=== PATIENT | female | born 1955 | race Caucasian/White ===

== ENCOUNTER 2018-01-22 07:11 | Day surgery (SDC) | payer BC ==
[~2018-01-22] VITALS: Ht 180.3 cm; Wt 121.2 kg
[~2018-01-22 07:11] MED LIST: ASPIRIN E.C. 8181 MG PO; CELEXA 20MG20 MG/TAB PO; CO Q-1010 M1 PO; CYMBALTA 60MG60 MG PO; DOMPERIDONE10 MG/CAP PO; ESTRACE 1MG1 MG/TAB PO; GLUCOPHAGE500 MG/TAB PO; IRON325 MG PO; LIPITOR20 MG PO; MIDRIN 325 MG-11 CAP PO; MOBIC15 MG PO; MULTIPLE VITAMI1 TAB PO; NAPROSYN500 MG PO; NEURONTIN100 MG/CAP PO; NORCO 325 MG-51 TAB PO; PRINIVIL5 MG PO; PRINZIDE 12.5 M1 TAB PO; SINGULAIR 110 MG/TAB PO; SPORANOX100 MG PO; VALIUM 2MG T2 MG/TAB PO; ZANTAC 150MG T150 MG PO; [UNRECOGNIZED DRUG - CODE] PO
[2018-01-22] MEDS ORDERED: VITAMIN C500 MG PO (07:47)
[2018-01-22] MEDS ORDERED: CALCIUM CARBON650 M2 PO (07:48)
[2018-01-22] MEDS ORDERED: IRON PO (07:50)
[2018-01-22] MEDS ORDERED: BREO IH (07:51)
[2018-01-22] MEDS ORDERED: PRILOSEC10 MG PO (07:53)
[2018-01-22 07:56] VITALS: BP 129/92; PULSE 71; TEMP 98.3
[2018-01-22 08:45] VITALS: BP 114/78; PULSE 67; TEMP 97.8
[2018-01-22 09:00] VITALS: BP 112/76; PULSE 68
[2018-01-22 09:15] VITALS: BP 120/67; PULSE 65
[2018-01-22 09:30] VITALS: BP 126/64; PULSE 66
== END 2018-01-22 09:40 | disposition home or self-care (01) ==
LOC: SDCO 07:11
DX: Z12.11 Encounter for screening for malignant neoplasm of colon (principal); K21.0 Gastro-esophageal reflux disease with esophagitis; K31.7 Polyp of stomach and duodenum; K29.30 Chronic superficial gastritis without bleeding; J45.909 Unspecified asthma, uncomplicated; M19.90 Unspecified osteoarthritis, unspecified site; E11.9 Type 2 diabetes mellitus without complications; K44.9 Diaphragmatic hernia without obstruction or gangrene; Z90.49 Acquired absence of other specified parts of digestive tract; Z90.710 Acquired absence of both cervix and uterus
CPT/HCPCS: OP; J2250; J2405; J3010

== ENCOUNTER 2021-01-01 20:11 | Observation (INO) | payer MEDICARE ==
[~2021-01-01] VITALS: Ht 154.9 cm; Wt 112.7 kg
[~2021-01-01 20:11] MED LIST changes: +BREO IH; +CALCIUM CARBON650 M2 PO; +IRON PO; +PRILOSEC10 MG PO; +VITAMINC1000TA PO
[2021-01-01 21:03] LABS: COLLECTION METHOD CLEAN CATCH
[2021-01-01 21:13] LABS: BASO # 0.1 (0.0-0.2); BASO % 0.5 % (0.0-2.0); EOS # 0.2 (0.0-0.7); EOS % 1.1 % (0-4.0); GRAN # 13.4 (1.4-6.5); HEMATOCRIT 41.6 % (37.0-47.0); HEMOGLOBIN 13.5 g/dl (12.5-16.0); LYMPH # 1.2 (1.2-3.4); LYMPH % 7.6 % (20.0-51.0); MEAN CELL VOLUME 83 fl (80.0-100.0); MEAN CORPUSCULAR HEMOGLOBIN 27 pg (27.0-31.0); MEAN CORPUSCULAR HGB CONC 33 g/dl (33.0-37.0); MONO # 0.9 (0.1-0.6); MONO % 5.5 % (1.7-9.3); PLATELET COUNT 260 K/mm3 (130-400); RED BLOOD COUNT 4.99 M/mm3 (4.10-5.30)
[2021-01-01 21:16] LABS: MUCOUS Present /lpf; PH 5 (5-8); SQUAMOUS EPITHELIAL 0-2 /hpf; URINE APPEARANCE Hazy; URINE BACTERIA Rare /hpf; URINE BILIRUBIN Negative (NEGATIVE); URINE BLOOD Negative (NEGATIVE); URINE CALCIUM OXALATE CRYSTAL Present /hpf; URINE COLOR Yellow; URINE GLUCOSE Negative (NEGATIVE); URINE KETONE Negative (NEGATIVE); URINE LEUKOCYTE ESTERASE Trace (NEGATIVE); URINE NITRATE Negative (NEGATIVE); URINE PROTEIN(semi-quant) Negative (NEGATIVE); URINE RBC 0-2 /hpf
[2021-01-01 21:26] LABS: ALANINE AMINOTRANSFERASE 21 U/L (4-34); ALBUMIN 4.6 gm/dL (3.5-5.0); ALKALINE PHOSPHATASE 91 U/L (50-136); ANION GAP 7 mmol/L (7-16); AST,SGOT 26 U/L (15-37); BILIRUBIN,TOTAL 0.7 mg/dL (0.0-1.0); BLOOD UREA NITROGEN 23 mg/dL (7-17); CALCIUM 9.8 mg/dL (8.4-10.2); CARBON DIOXIDE 29 mmol/L (22-30); CHLORIDE 103 mmol/L (98-107); GLUCOSE 105 mg/dL (74-106); POTASSIUM 3.5 mmol/L (3.4-5.0); SODIUM 139 mmol/L (137-145); TOTAL PROTEIN 8.5 gm/dL (6.4-8.2)
[2021-01-01 21:36] LABS: LIPASE 165 U/L (23-300)
[2021-01-02 01:49] VITALS: BP 114/61; PULSE 77; TEMP 97.9
--- NOTE | 2021-01-02 03:44 | NUR ---
alert and ox4. Admit from er per w/c. Pt states has been having abdominal pain since july 2020. Has als had some nausea and dry heaving. Pain worsens when with having bowel movemnts. Desribes as abdomen cramping. Pt was suppose to be here this am at [address] Liang. NPO currently. Orders reviewed. Medicated by ER, NO pain upon arrival. Will let know in am that she is admitted for colitis. Antibotics and fluids infusing. POC discused.
--- NOTE | 2021-01-02 06:05 | NUR ---
CONSULTS CALLED TO DR EDDY AND DR STRANGE THIS AM.
--- NOTE | 2021-01-02 07:10 | NUR ---
Pt was up in the restroom, reports that she is having increase in pain and is requesting pain medication
[2021-01-02 07:18] LABS: BASO # 0.1 (0.0-0.2); BASO % 0.4 % (0.0-2.0); EOS # 0.2 (0.0-0.7); EOS % 1.7 % (0-4.0); GRAN # 9.7 (1.4-6.5); GRAN % 76.3 % (42.2-75.2); HEMOGLOBIN 11.6 g/dl (12.5-16.0); LYMPH % 15.7 % (20.0-51.0); MEAN CELL VOLUME 86 fl (80.0-100.0); MEAN CORPUSCULAR HEMOGLOBIN 28 pg (27.0-31.0); MEAN CORPUSCULAR HGB CONC 32 g/dl (33.0-37.0); MEAN PLATELET VOLUME 12.3 fl (7.4-10.4); MONO # 0.7 (0.1-0.6); MONO % 5.6 % (1.7-9.3); PLATELET COUNT 204 K/mm3 (130-400); RED BLOOD COUNT 4.18 M/mm3 (4.10-5.30); REDCELL DISTRIBUTION WIDTH-CV 14.5 % (11.5-14.5)
[2021-01-02 07:20] LABS: HEMATOCRIT 35.8 % (37.0-47.0)
--- NOTE | 2021-01-02 07:34 | NUR ---
Pain medication given. Pt is aware that she is NPO for possible procedure. Called OR to notify them that patient is on the floor as she was admitted last night. She was/is scheduled as an outpt for an EGD.
[2021-01-02 08:27] VITALS: BP 119/45; PULSE 63; TEMP 97.9
--- NOTE | 2021-01-02 08:29 | NUR ---
Talked with Dr Liang, EGD cancelled at this time. Dr Castellanos in to see pt
[2021-01-02 08:32] LABS: CALCIUM 8.6 mg/dL (8.4-10.2); CREATININE, serum 0.95 (0.52-1.25); POTASSIUM 3.4 mmol/L (3.4-5.0)
--- NOTE | 2021-01-02 09:15 | NUR ---
Broomcorn Seeder met with the patient to complete intake. The patient lives in [place] with her , Johnny. The patient denies DME use and is independent. The patient reports she recently had a sleep study and does not have the results yet. The patient's PCP is ALTA Doyle and patient receives medications from [facility] in [place]. The patient does not have advanced directives and was not interested in DPOA-HC form at this time. The patient plans to return home with Johnny at discharge. *Discharge disposition: Home with spouse.
[2021-01-02] MEDS ORDERED: ASPIRIN 32325 MG/TAB PO (09:47)
--- NOTE | 2021-01-02 10:00 | NUR ---
Dr Randolph has been in to see pt, new orders wrote. Pt stated that the IV morphine did not work for her, changed to PO. pt is aware that she can have clear liquids, informed her that a tray was ordered for her.
[2021-01-02] MEDS ORDERED: RYBELSUS7 MG PO (10:01)
[2021-01-02 11:48] VITALS: BP 107/58; PULSE 69; TEMP 97.4
--- NOTE | 2021-01-02 14:56 | NUR ---
Pt had been doing well most of the day. She did order lunch earlier, ate most of it, about 30 minutes after finishing starting having boughts of diarrhea and severe abd pain. Called Hospitalist to get the morphine changed as pt reports it did not help
--- NOTE | 2021-01-02 15:04 | NUR ---
Several attempts to visit patient; [facility] Facility Manager left a prayer card letting her know [facility] is available and will attempt to visit tomorrow.
[2021-01-02 15:17] VITALS: BP 137/57; PULSE 95; TEMP 97.7
--- NOTE | 2021-01-02 15:53 | NUR ---
Pt reports that her pain is much better. is in the room at this time, pt denies needs, will continue to monitor
[2021-01-02 20:48] VITALS: BP 120/53; PULSE 64; TEMP 98.7
--- NOTE | 2021-01-02 22:32 | NUR ---
pt has been doing great with no pain, no concern. She ate diner and tolerated it .VSS are stable. Will continue to monitor.
[2021-01-02 23:39] VITALS: BP 120/47; PULSE 71; TEMP 98.6
--- NOTE | 2021-01-03 00:23 | NUR ---
Pt is asleep, no distress noted.
[2021-01-03 04:23] VITALS: BP 123/61; PULSE 91; TEMP 97.7
--- NOTE | 2021-01-03 05:40 | NUR ---
pt rated her pain 6/10. [place] was given.Will continue to monitor.
[2021-01-03 06:40] LABS: BASO % 0.3 % (0.0-2.0); EOS # 0.3 (0.0-0.7); EOS % 3.2 % (0-4.0); GRAN # 6.3 (1.4-6.5); HEMOGLOBIN 11.1 g/dl (12.5-16.0); LYMPH # 1.7 (1.2-3.4); MEAN CELL VOLUME 85 fl (80.0-100.0); MEAN CORPUSCULAR HEMOGLOBIN 28 pg (27.0-31.0); MEAN CORPUSCULAR HGB CONC 32 g/dl (33.0-37.0); MEAN PLATELET VOLUME 11.8 fl (7.4-10.4); MONO # 0.7 (0.1-0.6); MONO % 7.3 % (1.7-9.3); PLATELET COUNT 175 K/mm3 (130-400); RED BLOOD COUNT 4.03 M/mm3 (4.10-5.30); REDCELL DISTRIBUTION WIDTH-CV 14.3 % (11.5-14.5)
[2021-01-03 06:43] LABS: HEMATOCRIT 34.3 % (37.0-47.0)
[2021-01-03 06:55] LABS: CALCIUM 8.7 mg/dL (8.4-10.2); CREATININE, serum 0.84 (0.52-1.25); POTASSIUM 4.2 mmol/L (3.4-5.0)
--- NOTE | 2021-01-03 07:16 | NUR ---
pt doing well this morning. Stated that she had a good night with no abdominal cramping or diarrhea. She did wake up with a migraine which she stated she still has a little of a headache left after pain medication. No needs verbalized this morning
[2021-01-03 07:58] VITALS: BP 120/57; PULSE 64; TEMP 98.3
--- NOTE | 2021-01-03 09:52 | NUR ---
Follow-up visit; Patient thanked Warping Machine Operator for stopping though declined Spiritual Care.
--- NOTE | 2021-01-03 10:05 | NUR ---
Chalk Machine Operator attended clincial rounds with the team. The patient to discharge home today, 01/03 with spouse. She will be needing oral antibiotics. They were sent to her pharmacy. There are no additional needs
--- NOTE | 2021-01-03 10:05 | NUR ---
Dr Castellanos and Dr Randolph have been in to see patient, orders for discharge
[2021-01-03] MEDS ORDERED: FLAGYL500 MG PO (10:09)
[2021-01-03] MEDS ORDERED: OMNICEF 300MG300 MG PO (10:09)
--- NOTE | 2021-01-03 10:59 | NUR ---
Pt has been up and took a shower. Reports still feeling well and wanting to go home. Reviewed discharge instructions with pt to include her prescriptions and follow up appoitments. INT removed from her right AC. Informed pt to notify nursing when her ride arrives. She stated he is on his way from [facility].
[2021-05-03] MEDS ORDERED: MULTIVITAMIN200 MCG PO (08:08)
[2021-05-03] MEDS ORDERED: PROBIOTIC BLEN1 EACH PO (08:08)
[2021-05-03] MEDS ORDERED: [UNRECOGNIZED DRUG - OTHER] PO (08:09)
[2021-05-03] MEDS ORDERED: VITAMIN B12 781 TAB PO (08:42)
== END 2021-01-03 12:17 | disposition home or self-care (01) ==
LOC: COL.ER 20:11 → SURG 01-02 00:21
PROVIDERS: Emergency Medicine; Student in an Organized Health Care Education/Training Program; ADMIT Hospitalist
DX: K52.9 Noninfective gastroenteritis and colitis, unspecified (principal); I95.9 Hypotension, unspecified; R61 Generalized hyperhidrosis; E87.6 Hypokalemia; R91.1 Solitary pulmonary nodule; E11.9 Type 2 diabetes mellitus without complications; E11.42 Type 2 diabetes mellitus with diabetic polyneuropathy; E78.5 Hyperlipidemia, unspecified; I10 Essential (primary) hypertension; K20.0 Eosinophilic esophagitis; K21.9 Gastro-esophageal reflux disease without esophagitis; J45.909 Unspecified asthma, uncomplicated; R42 Dizziness and giddiness; M19.90 Unspecified osteoarthritis, unspecified site; F41.0 Panic disorder [episodic paroxysmal anxiety]; F32.9 Major depressive disorder, single episode, unspecified; Z90.49 Acquired absence of other specified parts of digestive tract; Z79.84 Long term (current) use of oral hypoglycemic drugs; Z79.899 Other long term (current) drug therapy
CPT/HCPCS: G0378; J0696; J0744; J1170; J1644; J2270; J2405; J7030

== ENCOUNTER 2021-01-23 08:51 | Day surgery (SDC) | payer MEDICARE ==
[~2021-01-23] VITALS: Ht 180.3 cm; Wt 113.7 kg
[~2021-01-23 08:51] MED LIST changes: +ASPIRIN 32325 MG/TAB PO; +FLAGYL500 MG PO; +OMNICEF 300MG300 MG PO; +RYBELSUS7 MG PO
[2021-01-23 09:24] VITALS: BP 131/80; PULSE 65; TEMP 97.7
[2021-01-23] MEDS ORDERED: NEURONTIN100 MG/CAP PO (09:32)
[2021-01-23] MEDS ORDERED: MYRBETR25MG PO (09:46)
[2021-01-23] MEDS ORDERED: PHARMASSURE ZIN50 MG PO (09:47)
[2021-01-23] MEDS ORDERED: KLOR-CON 88 ME1 PO (09:48)
[2021-01-23 10:20] VITALS: BP 110/66; PULSE 66; TEMP 97.8
--- NOTE | 2021-01-23 10:20 | NUR ---
PATIENT BROUGHT BACK TO [facility] VIA CART. AMBULATED TO CHAIR WITHOUT DIFFICULTY. PLACED ON MONITORS, VITAL SIGNS STABLE. PATIENT REQUESTS JUICE, AND MUFFIN. DENIES PAIN OR NAUSEA. REPORT RECIEVED FROM LES [facility]. ALL QUESTIONS ANSWERED. WILL CONTIUE TO MONITOR.
[2021-01-23 10:35] VITALS: BP 122/73; PULSE 69
[2021-01-23 10:50] VITALS: BP 123/89; PULSE 66
--- NOTE | 2021-01-23 10:50 | NUR ---
PATIENT TOLERATING FOOD AND DRINK WITHOUT DIFFICULTY. VITAL SIGNS REMAIN STABLE. IV REMOVED, TOLERATED WELL. PATIENT TO GET DRESSED AT THS TIME. DISCHARGE INSTRUCTIONS REVIEWED AND SIGNED, ALL QUESTIONS ANSWERED. FOLLOW UP APPOINTMENT MADE FOR [address] STRANGE.
--- NOTE | 2021-01-23 11:05 | NUR ---
PATIENT BROUGHT DOWN TO LOBBY VIA WHEEL CHAIR. WAITING IN TRUCK AT FRONT ENTRANCE. TO DRIVE PATIENT HOME. ALL BELONGINGS IN HAND.
[2021-05-03] MEDS ORDERED: PROBIOTIC BLEN1 EACH PO (08:08)
[2021-05-03] MEDS ORDERED: MULTIVITAMIN200 MCG PO (08:08)
[2021-05-03] MEDS ORDERED: [UNRECOGNIZED DRUG - OTHER] PO (08:09)
[2021-05-03] MEDS ORDERED: VITAMIN B12 781 TAB PO (08:42)
== END 2021-01-23 11:05 | disposition home or self-care (01) ==
LOC: SDCO 08:51
DX: K31.7 Polyp of stomach and duodenum (principal); K21.9 Gastro-esophageal reflux disease without esophagitis; K20.0 Eosinophilic esophagitis; K55.9 Vascular disorder of intestine, unspecified; I10 Essential (primary) hypertension; E78.5 Hyperlipidemia, unspecified; E11.9 Type 2 diabetes mellitus without complications; M19.90 Unspecified osteoarthritis, unspecified site; J45.909 Unspecified asthma, uncomplicated; E78.00 Pure hypercholesterolemia, unspecified; Z79.899 Other long term (current) drug therapy; Z79.82 Long term (current) use of aspirin; Z79.84 Long term (current) use of oral hypoglycemic drugs; Z90.710 Acquired absence of both cervix and uterus; Z90.49 Acquired absence of other specified parts of digestive tract; Z80.3 Family history of malignant neoplasm of breast
CPT/HCPCS: J2704

== ENCOUNTER → 2021-05-03 | Day surgery (SDC) | payer MEDICARE ==
[~2021-05-03] VITALS: Ht 180.3 cm; Wt 115.5 kg
[~2021-05-03] MED LIST changes: +KLOR-CON 88 ME1 PO; +MULTIVITAMIN200 MCG PO; +MYRBETR25MG PO; +PHARMASSURE ZIN50 MG PO; +PROBIOTIC BLEN1 EACH PO; +VITAMIN B12 781 TAB PO; +[UNRECOGNIZED DRUG - OTHER] PO
[2021-05-03 08:35] VITALS: BP 139/82; PULSE 67; TEMP 97.9
[2021-05-03 09:25] VITALS: BP 132/65; PULSE 64; TEMP 97.1
--- NOTE | 2021-05-03 09:25 | NUR ---
The patient arrived back to [facility] from the endoscopy suite at this time. The patient appears alert and oriented and denies any pain or nausea at this time. Post operative vital signs were started at this time. The patient agrees to try some apple juice and muffin at this time. Call light is within reach. Will continue to monitor the patient.
[2021-05-03 09:40] VITALS: BP 126/73; PULSE 62
--- NOTE | 2021-05-03 09:40 | NUR ---
The patient appears to be tolerating the muffin and juice well. Vital signs appears stable. Will continue to monitor the patient.
[2021-05-03 09:50] VITALS: BP 124/83; PULSE 58
--- NOTE | 2021-05-03 09:50 | NUR ---
Dr. Cervantes is at the patient's bedside to discuss the findings of the procedure.
--- NOTE | 2021-05-03 10:20 | NUR ---
0954 - IN TO SEE PATIENT 1000 - D/C IV WITHOUT COMPLICATION. REVIEWED DISCHARGE ED, VERBALIZED UNDERSTANDING. 1020 - PATIENT TRANFERED TO PERSONAL VEHICLE TO BE DRIVEN HOME BY
== END ==
LOC: SDCO 07:32
DX: K92.1 Melena (principal); K52.9 Noninfective gastroenteritis and colitis, unspecified; R19.4 Change in bowel habit; R93.3 Abnormal findings on diagnostic imaging of other parts of digestive tract; K57.30 Diverticulosis of large intestine without perforation or abscess without bleeding; K64.0 First degree hemorrhoids; I10 Essential (primary) hypertension; E78.5 Hyperlipidemia, unspecified; K21.9 Gastro-esophageal reflux disease without esophagitis; M19.90 Unspecified osteoarthritis, unspecified site; G43.909 Migraine, unspecified, not intractable, without status migrainosus; E11.9 Type 2 diabetes mellitus without complications; B39.9 Histoplasmosis, unspecified; E11.40 Type 2 diabetes mellitus with diabetic neuropathy, unspecified; R91.1 Solitary pulmonary nodule; F32.9 Major depressive disorder, single episode, unspecified; F41.9 Anxiety disorder, unspecified; Z20.822 Contact with and (suspected) exposure to COVID-19; Z79.82 Long term (current) use of aspirin; Z79.899 Other long term (current) drug therapy; Z79.84 Long term (current) use of oral hypoglycemic drugs
CPT/HCPCS: J2405; J2704; J7120